=== PATIENT | female | born 1980 | race Caucasian/White ===

== ENCOUNTER → 2020-07-20 12:07 | Outpatient (CLI) | payer OTHER, SELFPAY ==
--- NOTE | ~2020-07-20 | MM_ITS ---
EXAMINATION: MM screening donna BI w yamile HISTORY: Screening mammogram TECHNIQUE: Craniocaudal and mediolateral oblique 3-D tomosynthesis images were obtained and synthetic 2-D images were generated. CAD analysis was submitted and interpreted. COMPARISON: None, baseline BREAST PARENCHYMAL COMPOSITION: There are scattered areas of fibroglandular density. FINDINGS: RIGHT BREAST: An asymmetry is present in the middle third of the breast on the mediolateral oblique v iew. LEFT BREAST: An asymmetry is present in the middle third of the inner breast on the craniocaudal view .. IMPRESSION: 1. Bilateral breast asymmetries. 2. Additional mammographic views and possible breast ultrasound are recommended to evaluate for malig zac and establish a baseline given that this is the first mammographic examination. BI-RADS Category 0: Incomplete: Needs additional imaging evaluation. Reviewed, dictated and finalized at location A. [facility] IMPRESSION: 1. Bilateral breast asymmetries. 2. Additional mammographic views and possible breast ultrasound are recommended to evaluate for malignancy and establish a baseline given that this is the fir st mammographic examination. BI-RADS Category 0: Incomplete: Needs additional imaging evaluation.
== END ==
PROVIDERS: Visit Provider Obstetrics & Gynecology Gynecologic Oncology
DX: Z12.31 Encounter for screening mammogram for malignant neoplasm of breast (principal); R92.8 Other abnormal and inconclusive findings on diagnostic imaging of breast
CPT/HCPCS: 77063; 77067

== ENCOUNTER 2021-10-11 00:58 | Day surgery (SDC) | payer OTHER, SELFPAY ==
--- NOTE | 2021-10-08 16:31 | SUR.PREOP ---
Report to the Outpatient Waiting Room, entrance under the green pavilion located off [facility], at time 0745 on date 10/11/21. OR Time: 0945. - You and your visitor will be asked a series of questions to screen for COVID 19 for your protection. - Only one visitor is allowed at this time. - The patient visitor is requested to leave or wait in car when not with patient. - A mask is required within the hospital. Patients may have clear liquids (water, carbonated beverages, clear teas, apple juice) until 3 hours prior to surgery with a maximum of 20 ounces. - NO CLEAR LIQUIDS AFTER 0645 - No food from midnight until time of surgery - Infants may have breast milk until 4 hours before surgery, infant formula 6 hours prior to surgery. - Children will be allowed to drink immediately following surgery. If applicable, please bring a bottle or sippy cup to assist with drinking. Juice, water, soda, and popsicles are readily available. For infants on formula, please bring formula the day of surgery. Pacifiers are allowed. Please no make-up, nail syrian, hairspray, perfume, deodorant, or body powder the day of surgery. No jewelry (including any body piercings) or valuables the day of surgery, leave them at home. Please take a shower or bath the night before, or the morning of, surgery with an antibacterial soap. Wear comfortable, loose fitting clothing. Children are encouraged to wear pajamas. - Jewelry must be removed prior to entering the operating room. Rings and piercings that are not removed may be cut off. - The hospital will not accept responsibility for valuables. - Please leave all valuables, including medications, at home the day of surgery. If you are going home after surgery, a licensed maintenance truck driver must drive you home. - NO public transportation without another adult. - We recommend that an adult stay with you for 24 hours following discharge. - We also recommend that you do not drive, make important decision, drink alcoholic beverages, or take any drugs that were not prescribed by your health care provider for at least 24 hours after your discharge time. For Pediatric surgeries, we recommend two adults accompany the child home (only one inside the building at this time). Follow any additional instructions given to you from your surgeon. If you or anyone in your household have experienced Covid symptoms in the past week, please notify your surgeon or the nurse liaison at the phone number below for possible testing. Telephone instructions given to [place] and asked if any additional questions and then verbalized understanding. Patient advised to call surgeon office or pre surgery nurse liaison [phone] if any additional questions.
[2021-10-08 16:37] VITALS: BMI 33.0
--- NOTE | 2021-10-10 09:02 | PM.IMHP ---
H&P: HPI History of Present Illness Date/Time: 10/10/21 09:02 41-year-old female presents for evaluation and treatment of heavy vaginal bleeding. States that her periods typically are very heavy but over the last 3-4 months have increased to 7 8 days with 4-5 days very heavy with clotting and cramping. She was seen emergency room which showed an enlarged uterus with fibroid. We discussed multiple options at this point she desires to proceed with endometrial ablation. We have discussed this will not treat the fibroid but the small fibroid that she has is likely not causing a significant issue regarding her bleeding. We have also discussed that at some point that may change and she may ultimately need a hysterectomy (which was offered and declined) but at this point endometrial ablation is a reasonable option for her in her clinical situation. Chief Complaint: Menometrorrhagia Review of Systems Review of Systems: All systems reviewed & are unremarkable except as noted in HPI and below PMFSH Surgical History Surgical History H/O tubal ligation History of tonsillectomy Family History Family History Grandparent Lung cancer Social History Social History Smoking packs per day: 0.2 Smoking cigarettes per day: 4.0 Years smoked: 25 Smoking pack-years: 5.00 Smoking status: Current some day smoker Tobacco type: cigarettes Alcohol intake: current Drinks per week: 8 Substance use: never Substance use type: does not use Living arrangements: with family Additional living arrangements comments: 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 Gender identity (if verbalized by the patient): Female Sexual Orientation (if Verbalized by the Patient): Straight or Heterosexual Spiritual care concerns: No Meds Home Medications and Allergies Home Medications Medication Instructions Recorded Confirmed Type No Home Medications 08/29/21 10/08/21 History Allergies Allergy/AdvReac Type Severity Reaction Status Date / Time No Known Allergies Allergy Verified 10/08/21 16:35 Exam Const: General: cooperative, healthy appearing and comfortable Resp: Effort & Inspection: normal respiratory effort Auscultation: clear to auscultation bilaterally Cardio: Rate: regular rate Rhythm: regular rhythm GI: Inspection: normal to inspection Auscultation: normal bowel sounds : External Female Exam: normal external appearance Speculum Exam - Vagina: normal appearance of the vagina Speculum Exam - Cervix: normal appearance of the cervix Bimanual exam- vagina & uterus: enlarged ( 8-10 week size with lateral fibroid palpated) Bimanual Exam- Adnexa, other: normal adnexae Assessment and Plan Assessment and plan (1) Menometrorrhagia: Code(s): N92.1 - Excessive and frequent menstruation with irregular cycle Status: Acute Assessment and Plan: proceed with hysteroscopy D&C as well as endometrial ablation. She has had a bilateral tubal ligation in the past. (2) Fibroid uterus: Code(s): D25.9 - Leiomyoma of uterus, unspecified Status: Acute
--- NOTE | 2021-10-11 07:23 | WPDHPUPDATE1 ---
History and Physical Update Update Date/Time: 10/11/21 07:23 History and Physical has been reviewed, including an updated exam of the patient. There are NO changes in the patient's condition. Risks, benefits, and alternatives have been discussed and questions answered. Patient agrees to proceed with procedure.
[2021-10-11] MEDS: ACETAMINOPHEN 500 MG TABLET 1000 MG PO (08:14)
[2021-10-11] MEDS: LACTATED RINGERS 1,000 ML 30 ML IV CONT (08:25)
[2021-10-11 08:30] VITALS: BP 125/83; PULSE 68; RESP 18; TEMP 36; O2SAT 100
--- NOTE | 2021-10-11 09:12 | P.PNAN_ITS ---
Anes - Initial Pre Proc Eval Procedure: Operation Date: 10/11/21 09:45 Proposed Procedures p Hysteroscopy, Dilation and Curettage, Chanel Endometrial Ablation - Roverto Bentley MD Date/Time: 10/11/21 09:12 Surgeon: Roverto Bentley MD Pre Op Diagnosis: menometrorrhagia Patient Data Age: 41 Gender: F Height: 1.65 m Weight: 87.6 kg Last Vital Signs Temp 36.0 C L 10/11/21 08:30 Pulse 68 10/11/21 08:30 Resp 18 10/11/21 08:30 BP 125/83 10/11/21 08:30 Pulse Ox 100 10/11/21 08:30 Allergies Allergy/AdvReac Type Severity Reaction Status Date / Time No Known Allergies Allergy Verified 10/11/21 08:59 Home Medications Medication Instructions Recorded Confirmed Type No Home Medications 08/29/21 10/11/21 History Patient hx anesthesia problems: none Family hx anesthesia problems: none Results Review: All pre-operative results and documents have been reviewed as part of the pre-operative evaluation. 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 Gender identity (if verbalized by the patient): Female Sexual Orientation (if Verbalized by the Patient): Straight or Heterosexual Spiritual care concerns: No Anes - Eval Final PreProcedure Day of Procedure 10/11/21 09:12 Patient weight: obese Heart: regular rate and rhythm Lungs: clear to auscultation Airway: Mallampati scale class II Neurological: alert and oriented Last oral intake: >/= 8 hours ASA classification: II Emergent: no Anesthetic plan: proceed Anesthesia type and monitoring: general GIVS and standard monitoring Results Review: All pre-operative results and documents have been reviewed as part of the pre-operative evaluation. Informed Consent: The patient's anesthetic plan and its attendant risks and benefits were discussed with the patient/family/POA. Questions were solicited and answers provided to the satisfaction of the patient/family/POA.
[2021-10-11] MEDS: ceFAZolin 2 GM/D5W 50 ML 2 GM/50 ML BAG IVPB (09:36)
--- NOTE | 2021-10-11 10:00 | PM.OP ---
Procedure Note - Brief Procedure Note - Brief Date of procedure: 10/11/21 Pre-op diagnosis: menometrorrhagia Post-op diagnosis: Same Procedure performed: 1. Hysteroscopy 2. Creating 3. Endometrial ablation Description of procedure: Patient prepped for this procedure. Cervix to the hysteroscope to place which revealed no significant abnormalities. Curettings were obtained and the Chanel instrument was placed. After cavity assessment was performed instrument was activated with good results noted via hysteroscopic exam after the procedure. Patient are procedure well sent recovery room stable condition. Anesthesia: MAC Surgeon: Roverto Bentley MD Estimated blood loss (mL): 5 Drains: No Packing: No Pathology: Yes Complications: No immediate complications Condition: Stable Disposition: PACU Findings: Uterine cavity without abnormality
[2021-10-11 10:05] VITALS: BP 95/47; PULSE 58; RESP 16; O2SAT 98
[2021-10-11 10:35] VITALS: BP 143/84; PULSE 49; RESP 16; O2SAT 100
[2021-10-11] MEDS: oxyCODONE HCL (*CRX) 5 MG TAB IR PO (10:38)
[2021-10-11 11:05] VITALS: BP 138/90; PULSE 51; RESP 16; O2SAT 100
== END 2021-10-11 11:08 | disposition home or self-care (01) ==
PROVIDERS: PCP Nurse Practitioner Family; Visit Provider Obstetrics & Gynecology
PROC: 0U5B8ZZ Destruction of Endometrium, Via Natural or Artificial Opening Endoscopic (ICD-10-PCS; CPT 58563; principal; 2021-10-11 09:45)
DX: N92.1 Excessive and frequent menstruation with irregular cycle (principal); D25.9 Leiomyoma of uterus, unspecified; F17.210 Nicotine dependence, cigarettes, uncomplicated
CPT/HCPCS: 58563; 88305; A9270; J0690; J1100; J2250; J2405; J2704; J3010; J7030; J7120